=== PATIENT | male | born 1995 | race Caucasian/White ===

== ENCOUNTER 2018-11-22 19:10 | Emergency (ER) | payer BC ==
[~2018-11-22] VITALS: Ht 165.1 cm; Wt 54.4 kg
[2018-11-22 19:28] VITALS: BP 119/68
--- NOTE | 2018-11-22 19:28 | NUR ---
C/C BUG BITE ON R CHEEK 11 DAYS AGO, TOOK ANTIBIOTICS FOR 7 DAYS BUT GOT WORSE TODAY "FEELSL LIKE HE CANT BREATHING FROM ALLERGIC REACTION", TO ER BED 2 AWAITING BRIANNA JUAREZ,
== END 2018-11-22 19:54 | disposition home or self-care (01) ==
LOC: ER 19:14
DX: J32.9 Chronic sinusitis, unspecified (principal); L70.0 Acne vulgaris; Z88.0 Allergy status to penicillin; Z91.018 Allergy to other foods